=== PATIENT | female | born 2000 | race Caucasian/White ===

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

== ENCOUNTER → 2022-04-13 | Outpatient (CLI) | payer BC ==
[~2022-04-13] MED LIST changes: +CATHETER FLUSH 10 ML SYR IV PRN; +HOLD METFORMIN - RECEIVED CONTRAST 20 ML VIAL IV SCH; +HYDR-3817 PO; +IOHEXOL 350 MG/ML 100 ML (OMNIPAQUE 350) VIAL IV ONE; +NS 100 ML (IVPB) BAG IV ONE; +ONDA8TAB13 SL
[2022-04-13 17:04] LABS: BASOPHILS # (AUTO) 0.1 10^3/uL (0.0-0.1); BASOPHILS % (AUTO) 1 % (0-10); EOSINOPHILS # (AUTO) 0.2 10^3/uL (0.0-0.3); EOSINOPHILS % (AUTO) 1 % (0-10); HEMATOCRIT 41 % (35-52); HEMOGLOBIN 13.6 g/dL (11.5-16.0); LYMPHOCYTES # (AUTO) 2.5 10^3/uL (1.0-4.0); LYMPHOCYTES % (AUTO) 21 % (12-44); MEAN CORPUSCULAR HEMOGLOBIN 29 pg (25-34); MEAN CORPUSCULAR HGB CONC 33 g/dL (32-36); MEAN CORPUSCULAR VOLUME 87 fL (80-99); MEAN PLATELET VOLUME 10.1 fL (9.0-12.2); MONOCYTES % (AUTO) 8 % (0-12); NEUTROPHILS # (AUTO) 8.3 10^3/uL (1.8-7.8); NEUTROPHILS % (AUTO) 69 % (42-75); PLATELET COUNT 347 10^3/uL (130-400); WHITE BLOOD COUNT 12.1 10^3/uL (4.3-11.0)
--- NOTE | 2022-04-13 17:11 | Diagnostic Imaging Report ---
PROCEDURE: CT abdomen and pelvis with contrast. TECHNIQUE: Multiple contiguous axial images were obtained through the abdomen and pelvis after administration of intravenous contrast. Auto Exposure Controls were utilized during the CT exam to meet ALARA standards for radiation dose reduction. All CT scans use one or more of the following dose optimizing techniques: Automated exposure control, MA and/or KvP adjustment based on patient size and exam type or iterative reconstruction. INDICATION: Right lower quadrant abdominal pain. COMPARISON: 11/09/2015. FINDINGS: No focal hepatic, gallbladder, pancreatic, adrenal gland, or splenic abnormality is identified. Kidneys are also unremarkable. The appendix is of normal caliber. There may be minimal surrounding edema or inflammation. There is no evidence of organized fluid collection to indicate an abscess. Unopacified bladder is unremarkable. There is mild pelvic free fluid which could be physiologic. There appear to be numerous cysts within the ovaries. IMPRESSION: There may be slight periappendiceal edema or inflammation; however, no mural thickening, appendicolith, or abscess is identified. There is no evidence of perforation. Mild free fluid in the pelvis may be physiologic in nature, and clinical correlation would be of use. Dictated by: Dictated on workstation # [id number]
[2022-04-13 17:22] LABS: ALBUMIN 4.1 GM/DL (3.2-4.5)
[2022-04-13 17:23] LABS: POTASSIUM 3.7 MMOL/L (3.6-5.0)
[2022-04-13 17:24] LABS: CALCIUM 9.1 MG/DL (8.5-10.1)
[2022-04-13 17:25] LABS: TOTAL PROTEIN 6.7 GM/DL (6.4-8.2)
[2022-04-13 17:27] LABS: BILIRUBIN,TOTAL 0.2 MG/DL (0.1-1.0)
[2022-04-13 17:29] LABS: CREATININE SERUM 0.74 MG/DL (0.60-1.30)
== END ==
LOC: LAB 16:11
PROVIDERS: ATTEND Family Medicine
DX: R10.31 Right lower quadrant pain (principal); R11.0 Nausea
CPT/HCPCS: 36415; 74177; 80053; 85025

== ENCOUNTER 2022-04-14 09:45 | Day surgery (SDC) | payer BC ==
[~2022-04-14] VITALS: Ht 170.2 cm; Wt 113.6 kg
[2022-04-14] VITALS (12 sets, daily range): BP systolic 90–134; BP diastolic 44–93
[~2022-04-14 09:45] MED LIST changes: -CATHETER FLUSH 10 ML SYR IV PRN; -HOLD METFORMIN - RECEIVED CONTRAST 20 ML VIAL IV SCH; -HYDR-3817 PO; -IOHEXOL 350 MG/ML 100 ML (OMNIPAQUE 350) VIAL IV ONE; -NS 100 ML (IVPB) BAG IV ONE; -ONDA8TAB13 SL
[2022-04-14] MEDS ORDERED: ceFAZolin INJECTION 1,000 MG in NS (IVPB) 50 ML IV ONE (10:15)
[2022-04-14] MEDS: LACTATED RINGERS 1,000 ML IV PRN ×2 (10:15→11:57)
[2022-04-14] MEDS ORDERED: metroNIDAZOLE 500MG/100ML IVPB 100 ML IV ONE (10:15)
[2022-04-14] MEDS ORDERED: metroNIDAZOLE 500MG/100ML IVPB 100 ML ONE (10:23)
[2022-04-14] MEDS ORDERED: NS (IVPB) 50 ML ONE (10:23)
[2022-04-14] MEDS ORDERED: ceFAZolin INJECTION 1,000 MG ONE (10:23)
[2022-04-14] MEDS ORDERED: BUP/EPI 0.5% 1:200,000 (MARCAINE) 10ML VIAL IJ ONE (10:27)
[2022-04-14] MEDS ORDERED: ONDANSETRON 4 MG/2 ML (SDV) Z0FRAN ONE (10:34)
[2022-04-14] MEDS ORDERED: MIDAZOLAM 2 MG/2 ML (VERSED) VIAL ONE (10:34)
[2022-04-14] MEDS ORDERED: fentaNYL INJ 100 MCG/2 ML AMP ONE ×2 (10:34→12:08)
[2022-04-14] MEDS ORDERED: LIDOCAINE PF 2% 5 ML (XYLOCAINE) VIAL ONE (10:34)
[2022-04-14] MEDS ORDERED: SEVOFLURANE (ULTANE) 15 ML INHAL SOLN ONE ×2 (10:34→12:28)
[2022-04-14] MEDS ORDERED: proPOfol 200 MG/20 ML (DIPRIVAN) VIAL IV ONE (10:34)
--- NOTE | 2022-04-14 10:36 | Progress Note-Pre Operative ---
Pre-Operative Progress Note Date of Available H&P: Apr 14, 2022 Date H&P Reviewed: Apr 14, 2022 Time H&P Reviewed: 10:00 History & Physical: No changes noted Pre-Operative Diagnosis: acute appendicitis PABLO HAND MD Apr 14, 2022 10:36
[2022-04-14] MEDS ORDERED: HYDR-3817 PO (10:38)
--- NOTE | 2022-04-14 10:38 | Discharge Inst-Surgical ---
D/C Lap Instructions-KIDO New, Converted, or Re-Newed RX: RX on Chart Follow Up Appt in 2 weeks Activity as tolerated No driving for 24 hours No driving while on pain medications Incentive Spirometry use every 2 hours while awake High Fiber Diet 25g or more per day Avoid Alcohol, Caffeine, Spicy [place] and Acid foods. Drink 64 fluid oz or more of fluids per day. Symptoms to Report: Fever over 101 degree F, Nausea/Vomiting If any problems/questions: Contact your physician or go to Emergency Room APBLO HAND MD Apr 14, 2022 10:38
[2022-04-14] MEDS ORDERED: ACETAMINOPHEN 325 MG TABLET PO PRN (10:45)
[2022-04-14] MEDS ORDERED: oxyCODONE/APAP 5/325MG (PERCOCET 5) TABLET PO PRN (10:45)
[2022-04-14] MEDS ORDERED: morphine INJ 10 MG/ML 1ML (SYR OR VIAL) IVP PRN ×2 (10:45)
[2022-04-14] MEDS ORDERED: ONDANSETRON 4 MG/2 ML (SDV) Z0FRAN IVP PRN ×2 (10:45→12:30)
--- NOTE | 2022-04-14 11:27 | HISTORY AND PHYSICAL ---
DATE OF SERVICE: 04/14/2022 ATTENDING PRIMARY CARE PHYSICIAN: Dr. Jane Desouza. HISTORY OF PRESENT ILLNESS: The patient is a 21-year-old female who presented to her physician's office with pain in the right lower abdominal quadrant that started a day previous. She states that the pain persisted and worsened over time. She was sent for a CT scan, which did show inflammation of the appendix as well as a periappendiceal edema and an appendicolith consistent with acute appendicitis. She does not report any fever or chills as well as no nausea, no vomiting as well as no diarrhea. PAST MEDICAL HISTORY: Anxiety. PAST SURGICAL HISTORY: Excision of cystic hygroma, bilateral tympanostomy, tonsillectomy. ALLERGIES: No known drug allergies. MEDICATIONS: None. SOCIAL HISTORY: Positive for THC, negative alcohol. FAMILY HISTORY: Mother, breast cancer. VITAL SIGNS: Stable, afebrile. REVIEW OF SYSTEMS: This is a well-nourished female, currently in no acute distress. She is not experiencing any shortness of breath or difficulty breathing. No chest pain, palpitations, diaphoresis. No nausea, vomiting, diarrhea or constipation with pain in the right lower abdominal quadrant. No fever or chills. No recent inadvertent weight loss. All other review of systems negative. PHYSICAL EXAMINATION: CHEST: Clear, good breath sounds bilaterally. HEART: Regular, no murmurs. EXTREMITIES: No lower extremity edema. Negative Homans sign. HEENT: No scleral icterus. No cervical lymphadenopathy. ABDOMEN: Soft, nondistended. There is pain in the right lower abdominal quadrant at McBurney's point, voluntary guarding, no rebound. SKIN: Warm and dry. ASSESSMENT AND PLAN: A 21-year-old female with acute appendicitis. The natural history of this disease process was explained to the patient as well as the risks and benefits of surgery and she is in full understanding of this and would like to proceed with a laparoscopic appendectomy, which we will proceed with. Job ID: [id number] DocumentID: [id number] Dictated Date: 04/14/2022 10:43:49 Overweaver Date: 04/14/2022 11:25:00 Dictated By: PABLO HAND MD
[2022-04-14] MEDS ORDERED: SUCCINYLCHOLINE INJ 100 MG/5 ML SYR/VIAL ONE (12:05)
[2022-04-14] MEDS ORDERED: ROCURONIUM 10 MG/ML 5 ML SYRINGE IV ONE (12:05)
[2022-04-14] MEDS ORDERED: NEOSTIGMINE 3 MG/3 ML VIAL ONE (12:14)
[2022-04-14] MEDS ORDERED: GLYCOPYRROLATE 0.2 MG/ML (ROBINUL) 2 ML VIAL ONE (12:14)
--- NOTE | 2022-04-14 12:18 | Progress Note-Post Operative ---
Post-Operative Progess Note Surgeon (s)/Insurance Sales Agent (s) Surgeon PABLO HAND MD Insurance Sales Agent: none Pre-Operative Diagnosis acute appendicitis Post-Operative Diagnosis same Procedure & Operative Findings Date of Procedure 04/14/22 Procedure Performed/Findings laparoscopic appendectomy Anesthesia Type get Estimated Blood Loss Estimated blood loss (mL): minimal Specimens/Packing Specimens Removed appendix PABLO HAND MD Apr 14, 2022 12:18
--- NOTE | 2022-04-14 12:24 | Anesthesia-General Post-Op ---
General Patient Condition Mental Status/LOC: Same as Preop Cardiovascular: Satisfactory Nausea/Vomiting: Absent Respiratory: Satisfactory Pain: Controlled Complications: Absent Post Op Complications Complications None Follow Up Care/Instructions Patient Instructions None needed. Anesthesia/Patient Condition Patient Condition Patient is doing well, no complaints, stable vital signs, no apparent adverse anesthesia problems. No complications reported per nursing. MARIELA CORRAL CRNA Apr 14, 2022 12:24
[2022-04-14] MEDS ORDERED: HYDROmorphone 2 MG/ML VIAL (DILAUDID) IV ONE (12:30)
[2022-04-14] MEDS ORDERED: MEPERIDINE (DEMEROL) INJ 50 MG/ML ONE (12:47)
[2022-04-14] MEDS ORDERED: MEPERIDINE (DEMEROL) INJ 50 MG/ML IVP ONE (13:00)
[2022-04-14] MEDS ORDERED: ONDA8TAB13 SL (21:20)
== END 2022-04-14 14:39 | disposition home or self-care (01) ==
LOC: SDC 09:45
PROVIDERS: ATTEND Surgery
DX: K35.80 Unspecified acute appendicitis (principal); K38.0 Hyperplasia of appendix; E66.9 Obesity, unspecified; F17.290 Nicotine dependence, other tobacco product, uncomplicated; Z68.39 Body mass index [BMI] 39.0-39.9, adult
CPT/HCPCS: 84703; 87081; 88304

== ENCOUNTER 2022-04-14 20:54 | Emergency (ER) | payer BC ==
[~2022-04-14 20:54] MED LIST changes: +HYDR-3817 PO
[2022-04-14] MEDS ORDERED: fentaNYL INJ 100 MCG/2 ML AMP IVP ONE (21:15)
[2022-04-14] MEDS ORDERED: ONDANSETRON 4 MG/2 ML (SDV) Z0FRAN IVP ONE (21:15)
[2022-04-14] MEDS ORDERED: ONDA8TAB13 SL (21:20)
--- NOTE | 2022-04-14 21:21 | ED General ---
General Chief Complaint: Post OP Complications/Pain Stated Complaint: POST OP APPY 04/14 - NAUSEA - ABD PAIN Nursing Triage Note: PT ARRIVAL TO ER VIA PRIVATE VEHICLE FROM HOME WITH COMPLAINT OF NAUSEA, VOMITING, POST OP PAIN. PT HAD APPENDECTOMY TODAY HERE WITH [facility]. PATIENT HAS HOME HYDROCODONES, BUT STATES THAT SHE HAS BEEN NAUSEATED AND VOMITING SINCE SURGERY. Source of Information: Patient Exam Limitations: No Limitations History of Present Illness Date Seen by Provider: Apr 14, 2022 Time Seen by Provider: 21:16 Initial Comments To ER with nausea and vomiting as well as diffuse abdominal pain. She had a laparoscopic appendectomy this morning for acute appendicitis found on outpat ient CT. She went home around 2 PM. She has been taking her hydrocodone for pain but believes that may be causing her some nausea. Timing/Duration: 4-6 Hours Severity: Moderate Associated Systoms: Nausea/Vomiting Allergies and Home Medications Allergies Coded Allergies: No Known Drug Allergies (Unverified , 01/01/19) Patient Home Medication List Home Medication List Reviewed: Yes Hydrocodone Bit/Acetaminophen (Lortab 5 Mg Tablet) 1 Each Tablet, 1-2 TAB PO Q4-6HR Prescribed by: SEDA BARRY on 01/02/19 1732 Hydrocodone/Acetaminophen (Hydrocodone-Acetamin 7.5-325) 7.5 Mg-325 Mg Tablet, 1 EACH PO Q4H Prescribed by: PABLO HAND on 04/14/22 1038 Review of Systems Review of Systems Constitutional: see HPI EENTM: see HPI Respiratory: no symptoms reported Cardiovascular: no symptoms reported Gastrointestinal: abdominal pain, nausea, vomiting Genitourinary: no symptoms reported Musculoskeletal: no symptoms reported Skin: no symptoms reported Psychiatric/Neurological: No Symptoms Reported Hematologic/Lymphatic: No Symptoms Reported Past Kotqdlc-Nyoyyl-Bwddnx Hx Patient Social History Tobacco Use?: Yes Tobacco type used: Cigarettes Smoking Status: Current Everyday Smoker Use of E-Cig and/or Vaping dev: No Substance use?: No Alcohol Use?: No Pt feels they are or have been: No Immunizations Up To Date PED Vaccines UTD: Yes Influenza Vaccine Up-to-Date: No; Not Current First/Initial COVID19 Vaccinat: DONE Second COVID19 Vaccination Chetan: DONE Third COVID19 Vaccination Date: DONE Seasonal Allergies Seasonal Allergies: No Past Medical History Surgeries: Yes (BMT X4; UMBILICAL CYST) Adenoidectomy, Tonsillectomy Respiratory: No Currently Using CPAP: No Currently Using BIPAP: No Cardiac: No Neurological: No Female Reproductive Disorders: Denies Sexually Transmitted Disease: No HIV/AIDS: No Genitourinary: No Gastrointestinal: Yes Gastroesophageal Reflux Musculoskeletal: No Endocrine: No HEENT: No Loss of Vision: Denies Hearing Impairment: Denies Cancer: No Psychosocial: Yes Anxiety, Depression Integumentary: No Blood Disorders: No Adverse Reaction/Blood Tranf: No (N/A) Family Medical History No Pertinent Family Hx Physical Exam Vital Signs Vital Signs - First Documented 04/14/22 20:58 Temp 36.8 Pulse 78 Resp 20 B/P (MAP) 147/96 (113) Pulse Ox 99 O2 Delivery Room Air Capillary Refill : Less Than 3 Seconds Height, Weight, BMI Height: 5'7.00" Weight: 200lbs. 0.0oz. [id number]; 39.21 BMI Method:Stated General Appearance: No Apparent Distress, WD/WN Eyes: Bilateral Eye Normal Inspection, Bilateral Eye PERRL, Bilateral Eye EOMI Neck: Full Range of Motion, Normal Inspection Respiratory: No Accessory Muscle Use, No Respiratory Distress Gastrointestinal: Normal Bowel Sounds, Soft, Tenderness Extremity: Normal Capillary Refill, Normal Inspection Neurologic/Psychiatric: Alert, Oriented x3 Skin: Normal Color, Warm/Dry Progress/Results/Core Measures Suspected Sepsis SIRS Temperature: Pulse: 78 Respiratory Rate: 20 Blood Pressure 147 /96 Mean: 113 Results/Orders My Orders Orders - MARLINE WILLIAMSON APRN Ed Iv/Invasive Line Start (04/14/22 21:10) Ondansetron Injection (Zofran Injectio (04/14/22 21:15) Vital Signs/I&O 04/14/22 20:58 Temp 36.8 Pulse 78 Resp 20 B/P (MAP) 147/96 (113) Pulse Ox 99 O2 Delivery Room Air Capillary Refill : Less Than 3 Seconds Blood Pressure Mean: 113 Departure Impression Primary Impression: Postoperative vomiting Disposition: 01 HOME, SELF-CARE Condition: Stable Departure-Patient Inst. Decision time for Depature: 21:18 Referrals: BO BAEZ MD (PCP/Family) Primary Care Physician Patient Instructions: Nausea and Vomiting, Adult Add. Discharge Instructions: The nausea and vomiting could be from the hydrocodone for pain but it could just be from the anesthesia that you received today. Take the nausea medication as directed. Return to ER for any worsening. You can try the other pain medication called oxycodone to see if it causes any less nausea and vomiting. Scripts Ondansetron (Ondansetron Odt) 8 Mg Tab.rapdis 8 MG SL Q6H PRN for NAUSEA/VOMITING, #14 TAB Prov: MARLINE WILLIAMSON APRN 04/14/22 MARLINE WILLIAMSON APRN Apr 14, 2022 21:21
[2022-04-14] MEDS ORDERED: RX-ONDANSETRON 4 MG ODT (ZOFRAN) PPK #4 PO STA (21:22)
[2022-04-14] MEDS ORDERED: RX-OXYCODONE/APAP 5-325 MG #4 TAB PK PO PRN (21:30)
[2022-04-14 21:31] LABS: BASOPHILS # (AUTO) 0.1 10^3/uL (0.0-0.1); BASOPHILS % (AUTO) 0 % (0-10); EOSINOPHILS % (AUTO) 0 % (0-10); HEMATOCRIT 41 % (35-52); HEMOGLOBIN 13.7 g/dL (11.5-16.0); LYMPHOCYTES # (AUTO) 1.6 10^3/uL (1.0-4.0); LYMPHOCYTES % (AUTO) 10 % (12-44); MEAN CORPUSCULAR HEMOGLOBIN 28 pg (25-34); MEAN CORPUSCULAR HGB CONC 34 g/dL (32-36); MEAN CORPUSCULAR VOLUME 84 fL (80-99); MEAN PLATELET VOLUME 10.3 fL (9.0-12.2); MONOCYTES # (AUTO) 0.8 10^3/uL (0.0-1.0); MONOCYTES % (AUTO) 5 % (0-12); NEUTROPHILS # (AUTO) 14.3 10^3/uL (1.8-7.8); NEUTROPHILS % (AUTO) 85 % (42-75); PLATELET COUNT 373 10^3/uL (130-400); WHITE BLOOD COUNT 16.8 10^3/uL (4.3-11.0)
[2022-04-14 21:37] LABS: ALBUMIN 4.2 GM/DL (3.2-4.5)
[2022-04-14 21:39] LABS: CALCIUM 9.3 MG/DL (8.5-10.1)
[2022-04-14 21:40] LABS: TOTAL PROTEIN 6.9 GM/DL (6.4-8.2)
[2022-04-14 21:42] LABS: BILIRUBIN,TOTAL 0.8 MG/DL (0.1-1.0)
[2022-04-14 21:44] LABS: CREATININE SERUM 0.71 MG/DL (0.60-1.30)
[2022-04-14 21:58] LABS: LYMPHOCYTES % (MANUAL) 15 %; MONOCYTES % (MANUAL) 1 %; NEUTROPHILS % (MANUAL) 84 %; PLATELET ESTIMATE NORMAL; RBC MORPH NORMAL
[2022-04-14 22:11] VITALS: BP 128/70
== END 2022-04-14 22:19 | disposition home or self-care (01) ==
LOC: EDUNIT# 20:54 → ER 20:56
DX: K91.0 Vomiting following gastrointestinal surgery (principal); F17.210 Nicotine dependence, cigarettes, uncomplicated; Z90.49 Acquired absence of other specified parts of digestive tract
CPT/HCPCS: 36415; 80053; 85007; 85027; 99284

== ENCOUNTER → 2022-12-20 | Outpatient (CLI) | payer BC ==
[~2022-12-20] MED LIST changes: +ONDA8TAB13 SL
--- NOTE | 2022-12-20 13:36 | Diagnostic Imaging Report ---
PROCEDURE: Pelvic comp/transvaginal sonogram. TECHNIQUE: Complete transabdominal and transvaginal pelvic ultrasound was performed. In addition, limited pelvic Doppler was performed. INDICATION: Dysmenorrhea. FINDINGS: Uterus is anteverted measuring 7.3 x 3.9 x 4.5 cm. Cervical nabothian cyst is noted. Endometrium is 9 mm in thickness. No myometrial mass is identified. Right ovary measures 3.0 x 2.3 x 2.3 cm and the left ovary measures 4.1 x 2.4 x 3.4 cm. Left ovary contains an approximately 11 mm hemorrhagic cyst. There is blood flow to both ovaries. No adnexal mass or free fluid is detected. IMPRESSION: Essentially unremarkable transabdominal and transvaginal pelvic ultrasound with limited pelvic Doppler with approximately 11 mm hemorrhagic left ovarian cyst. Dictated by: Dictated on workstation # [id number]
== END ==
LOC: RAD 11:33
PROVIDERS: ATTEND Nurse Practitioner Family
DX: N83.202 Unspecified ovarian cyst, left side (principal); N94.6 Dysmenorrhea, unspecified
CPT/HCPCS: 76830; 76856

== ENCOUNTER 2022-12-28 15:57 | Emergency (ER) | payer BC ==
[~2022-12-28] VITALS: Ht 167.7 cm; Wt 108.9 kg
--- NOTE | 2022-12-28 16:13 | ED Upper Extremity ---
General Chief Complaint: Bite-Animal/Human/Insect Stated Complaint: DOG BITE/RIGHT HAND/WRIST LAC Nursing Triage Note: PT AMB TO ED BY POV WITH C/O DOG BITE. PT REPORTS TWO NEIGHBORHOOD DOGS WERE FIGHTING AND SHE GOT BIT WHILE TRYING TO BREAK UP THE DOGS AROUND 1430. PT DOES NOT KNOW IF DOG WAS VACCINATED. LAST TETANUS UNKNOWN. Source: patient Exam Limitations: no limitations History of Present Illness Date Seen by Provider: Dec 28, 2022 Time Seen by Provider: 16:11 Initial Comments Patient is a 22-year-old female who presents to ED with a dog bite. Patient ates she suffered a dog bite to her right wrist. This occurred around 3:30 PM. She was breaking up 2 dogs in her neighborhood. One of the dogs clamped on her right wrist. She is unsure what type of dog it was. She did not feel that the dog was aggressive. Patient suffered 2 lacerations. Swelling and bruising after the injury. Pain with movement of the wrist. She is able to extend and flex her digits. She is not up-to-date on her tetanus. She is unsure if the dog is up-to-date on his rabies vaccine. Denies taking thing for pain. Bleeding controlled with direct pressure. Denies of any distal numbness and tingling, nausea, vomiting, diarrhea. Allergies and Home Medications Allergies Coded Allergies: No Known Drug Allergies (Unverified , 01/01/19) Patient Home Medication List Home Medication List Reviewed: Yes Amoxicillin/Potassium Clav (Amox Tr-K Clv 875-125 mg Tab) 875 Mg-125 Mg Tablet, 1 EACH PO BID Prescribed by: ANT SAMUEL on 12/28/22 1639 Hydrocodone Bit/Acetaminophen (Lortab 5 Mg Tablet) 1 Each Tablet, 1-2 TAB PO Q4-6HR Prescribed by: SEDA BARRY on 01/02/19 1732 Hydrocodone/Acetaminophen (Hydrocodone-Acetamin 7.5-325) 7.5 Mg-325 Mg Tablet, 1 EACH PO Q4H Prescribed by: PABLO HAND on 04/14/22 1038 Ondansetron (Ondansetron Odt) 8 Mg Tab.rapdis, 8 MG SL Q6H PRN for NAUSEA/VOMI TING Prescribed by: MARLINE WILLIAMSON on 04/14/222119 Review of Systems Constitutional: No chills, No malaise, No weakness EENTM: No ear pain, No blurred vision, No double vision Respiratory: No cough, No dyspnea on exertion Cardiovascular: No chest pain Gastrointestinal: No abdominal pain, No diarrhea, No nausea, No vomiting Genitourinary: No decreased output, No discharge Musculoskeletal: No back pain; joint pain, joint swelling, muscle pain Skin: change in color All Other Systems Reviewed Negative Unless Noted: Yes Past Gsbcrrl-Iqmtok-Axismm Hx Immunizations Up To Date PED Vaccines UTD: Yes First/Initial COVID19 Vaccinat: DONE Second COVID19 Vaccination Chetan: DONE Third COVID19 Vaccination Date: DONE Seasonal Allergies Seasonal Allergies: No Past Medical History Surgeries: Yes (BMT X4; UMBILICAL CYST) Adenoidectomy, Tonsillectomy Respiratory: No Currently Using CPAP: No Currently Using BIPAP: No Cardiac: No Neurological: No Last Menstrual Period: Nov 30, 2022 Female Reproductive Disorders: Denies Sexually Transmitted Disease: No HIV/AIDS: No Genitourinary: No Gastrointestinal: Yes Gastroesophageal Reflux Musculoskeletal: No Endocrine: No HEENT: No Loss of Vision: Denies Hearing Impairment: Denies Cancer: No Psychosocial: Yes Anxiety, Depression Integumentary: No Blood Disorders: No Adverse Reaction/Blood Tranf: No (N/A) Family Medical History No Pertinent Family Hx Physical Exam Vital Signs Vital Signs - First Documented 12/28/22 16:05 Temp 36.8 Pulse 111 Resp 18 B/P (MAP) 139/95 (110) Pulse Ox 100 O2 Delivery Room Air Capillary Refill : Less Than 3 Seconds Height, Weight, BMI Height: 5'7.00" Weight: 200lbs. 0.0oz. 90.262832qs; 38.00 BMI Method:Stated General Appearance: WD/WN, no apparent distress HEENT: PERRL/EOMI, normal ENT inspection, TMs normal, pharynx normal Neck: non-tender, full range of motion, supple, normal inspection Cardiovascular: regular rate, rhythm, no edema, no gallop, no JVD Respiratory: chest non-tender, lungs clear, normal breath sounds, no respiratory distress, no accessory muscle use Gastrointestinal: normal bowel sounds, non tender, soft, no organomegaly Back: normal inspection Shoulder: normal inspection, non-tender Wrist: Yes pain (Puncture wound to right dorsum wrist, 1 cm laceration with adipose involvement right dorsum lateral wrist. No tendon or muscular involvement. Bleeding controlled. Normal active range of motion right wrist. Medication Administration Professional strength 5-5. 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 Adipose involvement. Bleeding controlled. Swelling and bruising noted. Puncture wound less than once a meter to right dorsum lateral wrist) Procedures/Interventions Wound Location: Upper Extremities Other Wound Location right Wound Length (cm): 1 Wound's Depth, Shape: superficial, sub Q Wound Explored: clean Irrigated w/ Saline (ccs): 500 Betadine Prep?: Yes Anesthesia: 1% Lidocaine Volume Anesthetic (ccs): 3 Suture: Ethlion Suture Size: 4-0 Number of Sutures: 4 Layer Closure?: 1 Sterile Dressing Applied?: Yes Less than 1 cm puncture wound right dorsal lateral wrist. Anesthetized with 1 nail of 1% lidocaine. Prepped with iodine. Extensive irrigation 500 ml normal saline and Shur cleans. Two 4-0 Ethilon sutures were placed loosely. Progress/Results/Core Measures Results/Orders My Orders Orders - EMMY KC Pertuss(Acell),Tet Adult (Boostrix (12/28/22 16:15) Wrist, Right, 3 Views Or More (12/28/22 16:09) Hydrocodone/Apap 5/325 Tablet (Hydrocod (12/28/22 16:15) Lidocaine 1% Inj 10 Ml (Xylocaine 1% Inj (12/28/22 16:15) Lidocaine 1% Inj 10 Ml (Xylocaine 1% Inj (12/28/22 16:16) Medications Given in ED Current Medications Medications Dose Ordered Sig/Pastor Route Start Time Stop Time Status Last Admin Dose Admin Acetaminophen/ Hydrocodone Bitart 1 ea ONCE ONCE PO 12/28/22 16:15 12/28/22 16:16 DC 12/28/22 16:18 1 EA Diphtheria/ Tetanus/Acell Pertussis 0.5 ml ONCE ONCE IM 12/28/22 16:15 12/28/22 16:16 DC 12/28/22 16:19 0.5 ML Lidocaine HCl 10 ml ONCE ONCE INJ 12/28/22 16:15 12/28/22 16:16 DC 12/28/22 16:20 10 ML Vital Signs/I&O 12/28/22 16:05 Temp 36.8 Pulse 111 Resp 18 B/P (MAP) 139/95 (110) Pulse Ox 100 O2 Delivery Room Air Blood Pressure Mean: 110 Departure Communication (PCP) Reviewed previous ER visits, H&P, lab testing. Patient has swelling and bruising to the right dorsum wrist. She has a less than 1 cm puncture wound and a 1 cm laceration to the right wrist. Appears to have normal flexion extension of the digits and wirst. Extensive irrigation with sure cleans and normal saline. Explored the wounds without strong evidence of a muscular or tendon i njury. Patient is not up-to-date on her tetanus. Did receive a tetanus shot. X-ray was ordered which was negative for foreign body or obvious fracture. Placed 4 4-0 Ethilon sutures to one of the lacerations and 2 4-0 Ethilon sutures to one of the lacerations. Patient received a dose of pain medication. She is unsure if the dog is up-to-date on its rabies vaccines. Did offer rabies immunoglobulin and the vaccine but she would rather wait. She is going to contact animal control to locate the dog and family. She does not believe the dog is a stray. Discussed with patient recommend observing the dog for at least 7 days. If there is any signs and change in behavior of the dog recommend getting the vaccine and immunoglobulin within the next 7 days. Low risk in this area. If increased redness or swelling to the laceration to return back to ED. Will discharge with Augmentin. Anti-inflammatories for pain. Ice for swelling. Discussed wound care topical Neosporin twice a day. Sutures were left loosely to allow drainage. Impression Primary Impression: Dog bite Additional Impression: Laceration Disposition: 01 HOME, SELF-CARE Condition: Stable Departure-Patient Inst. Decision time for Depature: 18:28 Referrals: BO BAEZ MD (PCP/Family) Primary Care Physician Patient Instructions: Animal and human bites Add. Discharge Instructions: Take ibuprofen 600 mg every 6-8 hours for pain and swelling. Ice to help with swelling. Sebastián wrap for comfort. Neosporin topical twice a day. Remove sutures in 10 days. If increased redness or swelling to return back to ED. recommend contacting animal control to monitor the dog and to find out if update on rabies. All discharge instructions reviewed with patient and/or family. Voiced understanding. Scripts Amoxicillin/Potassium Clav (Amox Tr-K Clv 875-125 mg Tab) 875 Mg-125 Mg Tablet 1 EACH PO BID for 7 Days, #14 TAB Prov: EMMY KC 12/28/22 Work/School Note: Work Release Form Date Seen in the Emergency Department: Dec 28, 2022 Return to Work: Jan 01, 2023 Restrictions: Recommend limited lifting of the right hand and wrist for 1 week EMMY KC Dec 28, 2022 16:13
[2022-12-28] MEDS ORDERED: TETANUS,DIPTH,PERTUSS P/F (BOOSTRIX) 0.5 ML VIAL IM ONE (16:15)
[2022-12-28] MEDS ORDERED: LIDOCAINE 1% INJ 10 ML VIAL INJ ONE (16:15)
[2022-12-28] MEDS ORDERED: HYDROcodone/ACETAMINOPHEN 5 MG/325 MG TABLET PO ONE (16:15)
[2022-12-28] MEDS ORDERED: LIDOCAINE 1% INJ 10 ML VIAL ONE (16:16)
--- NOTE | 2022-12-28 16:34 | Diagnostic Imaging Report ---
Indication: Right wrist pain AP, oblique, and lateral views of the right wrist are obtained. No fracture or acute bony abnormality seen. There is no radiopaque foreign body. There is soft tissue gas compatible with penetrating injury. Impression: No acute fracture or radiopaque foreign body. Soft tissue gas is noted compatible with penetrating injury. Dictated by: Dictated on workstation # [id number]
[2022-12-28] MEDS ORDERED: AMOX1TAB12 PO (16:39)
[2022-12-28 16:50] VITALS: BP 141/83
== END 2022-12-28 16:50 | disposition home or self-care (01) ==
LOC: EDUNIT# 15:57 → ER 15:59
DX: S61.511A Laceration without foreign body of right wrist, initial encounter (principal); Z23 Encounter for immunization; W54.0XXA Bitten by dog, initial encounter
CPT/HCPCS: 12001; 73110; 90715

== ENCOUNTER 2023-01-07 10:25 | Emergency (ER) | payer BC ==
[~2023-01-07] VITALS: Ht 167.7 cm; Wt 108.9 kg
[2023-01-07 10:25] VITALS: BP 119/67
[~2023-01-07 10:25] MED LIST changes: +AMOX1TAB12 PO
== END 2023-01-07 10:36 | disposition home or self-care (01) ==
LOC: EDUNIT# 10:25 → ER 10:27
DX: Z48.02 Encounter for removal of sutures (principal); Z28.310 Unvaccinated for COVID-19